=== PATIENT | female | born 1945 | race Caucasian/White ===

== ENCOUNTER → 2018-06-30 | Outpatient (REF) | payer MEDICARE, OTHER ==
[~2018-06-30] MED LIST: ACIDCAP PO; BELLADONNA PO; COZA100T PO; DYAZ37.5 PO; GLUC500T3 PO; HYDROCORTISONE0.5 % TOP; METAMUCIL PO; METOPROLOL PO; MULTIVIT PO; OMEP20TA7 PO; PERC5TAB8 OR; SENO17.2 OR; [UNRECOGNIZED DRUG - OTHER] PO
== END ==
LOC: M SFHCPLAZ 17:20
PROVIDERS: ATTEND Dermatology
DX: L30.9 Dermatitis, unspecified (principal)

== ENCOUNTER → 2021-10-06 | Outpatient (REF) | payer MEDICARE, OTHER ==
[~2021-10-06] MED LIST changes: +SENN17.2 OR; -SENO17.2 OR
== END ==
LOC: M WUC 19:37
PROVIDERS: ATTEND Internal Medicine
DX: R30.0 Dysuria (principal)

== ENCOUNTER → 2022-07-22 | Outpatient (REF) | payer MEDICARE, OTHER | LOC: M SFHCDERM 17:17 | PROVIDERS: ATTEND Nurse Practitioner Family | DX: L57.8 Other skin changes due to chronic exposure to nonionizing radiation (principal) ==

== ENCOUNTER → 2022-07-22 | Outpatient (REF) | payer MEDICARE, OTHER | LOC: M SFHCWAGY 15:32 | PROVIDERS: ATTEND Nurse Practitioner Family | DX: Z12.4 Encounter for screening for malignant neoplasm of cervix (principal); N88.8 Other specified noninflammatory disorders of cervix uteri ==

== ENCOUNTER 2023-01-05 11:34 | Emergency (ER) | payer MEDICARE, BC, OTHER ==
[~2023-01-05] VITALS: Ht 154.9 cm; Wt 62.7 kg
[2023-01-05] MEDS ORDERED: NITR1CAP27 PO (12:00)
[2023-01-05] MEDS ORDERED: PHEN-491 PO (12:00)
[2023-01-05] MEDS ORDERED: CEFP100T PO (12:00)
[2023-01-05 12:53] LABS: BASO # 0.1 10^3/uL (0.0-0.2); BASO % 0.9 % (0.0-1.0); EOS # 0.1 10^3/uL (0.0-0.5); EOS % 1.3 % (0.0-3.0); HEMATOCRIT 39.1 % (36.0-47.0); HEMOGLOBIN 13.3 g/dl (12.0-15.5); MEAN CORPUSCULAR HEMOGLOBIN 30.3 pg (27.0-33.0); MEAN CORPUSCULAR VOLUME 89.1 fl (80.0-96.0); MONO # 0.6 10^3/uL (0.0-0.8); MONO % 9.5 % (2.0-8.0); PLATELET COUNT, AUTOMATED 230 10^3/uL (150-450); RED BLOOD COUNT 4.39 10^6/uL (4.00-5.40); WHITE BLOOD COUNT 6.7 10^3/uL (4.0-10.0)
[2023-01-05 13:15] LABS: BLOOD UREA NITROGEN 12 MG/DL (9-23); CALCIUM LEVEL 9.9 MG/DL (8.3-10.6); CARBON DIOXIDE LEVEL 30 MMOL/L (20-31); CHLORIDE LEVEL 102 MMOL/L (98-107); CREATININE FOR GFR 0.62 MG/DL (0.55-1.30); GLOMERULAR FILTRATION RATE > 60.0 (>39); GLUCOSE, FASTING 92 MG/DL (74-106); POTASSIUM SERUM 4.2 MMOL/L (3.5-5.1); SODIUM LEVEL 138 MMOL/L (136-145)
[2023-01-05] MEDS ORDERED: ISOVUE-370 76% 100ML VIAL As Ordered ONE (15:18)
[2023-01-05] MEDS ORDERED: KETOROLAC 30 MG/ML 1ML VIAL IV ONE (15:20)
[2023-01-05] MEDS ORDERED: ACETAMINOPHEN TAB 650MG DOSE (2X325MG) PO ONE (16:00)
[2023-01-05] MEDS ORDERED: LIDOCAINE 2% 5ML JELLY UROJET TOP ONE (16:55)
[2023-01-05 18:11] VITALS: BP 167/90; TEMP 98; O2SAT 97
== END 2023-01-05 18:20 | disposition home or self-care (01) ==
LOC: M ED 11:34
DX: R33.9 Retention of urine, unspecified (principal); I10 Essential (primary) hypertension; K21.9 Gastro-esophageal reflux disease without esophagitis; M54.9 Dorsalgia, unspecified; K58.9 Irritable bowel syndrome, unspecified; Z88.5 Allergy status to narcotic agent; Z88.8 Allergy status to other drugs, medicaments and biological substances; Z88.6 Allergy status to analgesic agent; Z79.899 Other long term (current) drug therapy
CPT/HCPCS: 36415; 51702; 74177; 76857; 80048; 81001; 85025; 87088; 87186; 99284; Q9967

== ENCOUNTER → 2023-01-22 | Outpatient (REF) | payer MEDICARE, BC ==
[~2023-01-22] MED LIST changes: +CEFP100T PO; +NITR1CAP27 PO; +PHEN-491 PO
[2023-01-22 13:45] LABS: APPEARANCE, URINE CLEAR (CLEAR); BACTERIA, URINE AUTO NEGATIVE (NEGATIVE); BILIRUBIN, URINE AUTO NEGATIVE (NEGATIVE); BLOOD, URINE BLOOD NEGATIVE (NEGATIVE); COLOR, URINE YELLOW (YELLOW); GLUCOSE, URINE (UA) AUTO NEGATIVE (NEGATIVE); KETONE, URINE AUTO NEGATIVE (NEGATIVE); LEUKOCYTE ESTERASE, URINE AUTO 1+ (NEGATIVE); NITRITE, URINE AUTO NEGATIVE (NEGATIVE); PROTEIN, URINE AUTO NEGATIVE (NEGATIVE); RBC, URINE AUTO 5 /HPF (0-3); SPECIFIC GRAVITY URINE AUTO 1.008 (1.002-1.035); SQUAMOUS EPITHELIAL CELL UR AU 0 /HPF (0-6); UROBILINOGEN, URINE AUTO 0.2 mg/dL (0.0-2.0); WBC, URINE AUTO 14 /HPF (0-3)
== END ==
LOC: M SMT 12:59
PROVIDERS: ATTEND Physician Assistant
DX: N39.0 Urinary tract infection, site not specified (principal)

== ENCOUNTER → 2023-02-10 | Outpatient (REF) | payer MEDICARE, BC, OTHER | LOC: M SFHCWAGY 17:08 | PROVIDERS: ATTEND Specialist | DX: N39.0 Urinary tract infection, site not specified (principal) ==

== ENCOUNTER → 2023-02-11 | Outpatient (CLI) | payer MEDICARE, BC, OTHER | LOC: M WHC 08:05 | PROVIDERS: ATTEND Nurse Practitioner Family | DX: Z12.31 Encounter for screening mammogram for malignant neoplasm of breast (principal); Z80.41 Family history of malignant neoplasm of ovary ==

== ENCOUNTER → 2023-07-28 | Outpatient (REF) | payer MEDICARE, BC, OTHER ==
[~2023-07-28] MED LIST changes: -NITR1CAP27 PO; +NITR50CA51 PO
== END ==
LOC: M SFHCWAGY 14:50
PROVIDERS: ATTEND Specialist
DX: Z12.4 Encounter for screening for malignant neoplasm of cervix (principal); N95.2 Postmenopausal atrophic vaginitis
CPT/HCPCS: 87624; G0123

== ENCOUNTER → 2023-11-19 | Outpatient (CLI) | payer MEDICARE, BC ==
[~2023-11-19] MED LIST changes: +PROHANCE 279.3MG/ML 15ML VIAL ONE
== END ==
LOC: M PLAIMG 13:55
PROVIDERS: ATTEND Specialist
DX: R33.9 Retention of urine, unspecified (principal); M51.36 Other intervertebral disc degeneration, lumbar region; M48.061 Spinal stenosis, lumbar region without neurogenic claudication
CPT/HCPCS: 72158; A9576

== ENCOUNTER → 2024-01-27 | Outpatient (CLI) | payer MEDICARE, BC ==
[~2024-01-27] MED LIST changes: -PROHANCE 279.3MG/ML 15ML VIAL ONE
== END ==
LOC: M RAD 09:50
PROVIDERS: ATTEND Physician Assistant
DX: M79.661 Pain in right lower leg (principal)

== ENCOUNTER → 2024-02-15 | Outpatient (CLI) | payer MEDICARE, BC | LOC: M WHC 08:19 | PROVIDERS: ATTEND Specialist | DX: Z12.31 Encounter for screening mammogram for malignant neoplasm of breast (principal); R92.323 Mammographic fibroglandular density, bilateral breasts ==

== ENCOUNTER → 2025-02-22 | Outpatient (CLI) | payer MEDICARE, BC | LOC: M WHC 08:11 | PROVIDERS: ATTEND Specialist | DX: Z12.31 Encounter for screening mammogram for malignant neoplasm of breast (principal); R92.323 Mammographic fibroglandular density, bilateral breasts ==